=== PATIENT | female | born 1950 | race Caucasian/White ===

== ENCOUNTER 2020-12-04 07:00 | Outpatient (CLI) | payer MEDICARE, OTHER ==
--- NOTE | 2020-12-06 13:18 | XRAY Report ---
PROCEDURE: Knee 3 View RT INDICATIONS: SPRAIN OF R KNEE TECHNIQUE: 3 views of the right knee(s) were acquired. COMPARISON: None. FINDINGS: Bones: No fractures or dislocations. No suspicious bony lesions. Tricompartmental knee joint narro wing with periarticular osteophyte formation, most notably involving the lateral patellofemoral and t he medial femoral tibial joint. Soft tissues: Small joint effusion. No suspicious soft tissue calcifications. Chondrocalcinosis. 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 Chondrocalcinosis present. Reviewed by: EDEN Hairston on 12/06/2020 1:17 PM PDT Approved by: Amando Del Rosario on 12/06/2020 1:17 PM PDT Station ID: [id number]
== END 2020-12-04 23:59 | disposition home or self-care (01) ==
LOC: DI.N 07:00
PROVIDERS: ATTEND Physician Assistant Medical
DX: S83.91XA Sprain of unspecified site of right knee, initial encounter (principal); M17.11 Unilateral primary osteoarthritis, right knee; M11.261 Other chondrocalcinosis, right knee

== ENCOUNTER 2021-03-04 09:29 | Outpatient (CLI) | payer MEDICARE, OTHER ==
[2021-03-04 10:43] LABS: CHOL/HDL RATIO 2.3 (<4.4); CHOLESTEROL 193 mg/dL; HDL CHOLESTEROL 84 mg/dL; LDL CHOLESTEROL,CALCULATED 95 mg/dL; LDL/HDL RATIO 1.1 (<4.4); TRIGLYCERIDES 70 mg/dL; VLDL CHOLESTEROL 14 mg/dL
[2021-03-04 11:16] LABS: ESTIMATED AVERAGE GLUCOSE 120 mg/dL (70-100); HEMOGLOBIN A1c% 5.8 % (4.27-6.07)
== END 2021-03-04 09:30 | disposition home or self-care (01) ==
LOC: LAB 09:29
PROVIDERS: ATTEND Internal Medicine
DX: Z01.812 Encounter for preprocedural laboratory examination (principal); E78.2 Mixed hyperlipidemia; Z13.1 Encounter for screening for diabetes mellitus; Z20.822 Contact with and (suspected) exposure to COVID-19
CPT/HCPCS: 36415; 80061; 83036; U0004; 83721

== ENCOUNTER 2021-03-04 13:21 | Outpatient (CLI) | payer MEDICARE, OTHER | END 2021-03-04 13:22 | disposition home or self-care (01) | LOC: COV 13:21 | PROVIDERS: ATTEND Physician Assistant | DX: Z01.812 Encounter for preprocedural laboratory examination (principal); Z20.822 Contact with and (suspected) exposure to COVID-19 ==

== ENCOUNTER 2021-10-10 13:00 | Outpatient (CLI) | payer MEDICARE, OTHER ==
--- NOTE | 2021-10-10 15:39 | XRAY Report ---
PROCEDURE: Foot 3 View LT INDICATIONS: HEEL PAIN, LEFT TECHNIQUE: 3 views of the foot were acquired. COMPARISON: None FINDINGS: Bones: No fractures or dislocations. No suspicious bony lesions. Soft tissues: No tibiotalar joint effusion. Achilles tendon appears normal. IMPRESSION: No visualized acute fracture or dislocation. However, occult injury cannot be excluded. Recommend maxim rt interval imaging follow-up in 7-10 days as clinically indicated for additional evaluation. Reviewed by: Coretta Lafleur MD on 10/10/2021 3:37 PM PDT Approved by: Coretta Lafleur MD on 10/10/2021 3:37 PM PDT Station ID: [id number]
== END 2021-10-10 23:59 | disposition home or self-care (01) ==
LOC: DI.N 13:00
PROVIDERS: ATTEND Family Medicine
DX: M79.672 Pain in left foot (principal)

== ENCOUNTER 2022-08-15 09:41 | Outpatient (CLI) | payer MEDICARE, OTHER ==
--- NOTE | 2022-08-15 11:55 | DEXA Report ---
PROCEDURE: Dexa Spine and/or Hip INDICATIONS: POST MENOPAUSAL TECHNIQUE: Dual energy x-ray absorptiometry (DXA) was performed on a [employer] System. Regions measur ed are the AP Spine, femoral neck, and if needed forearm. COMPARISON: None. FINDINGS: Lumbar Spine: Bone Mineral Density 1.57 g/cm/cm,T score 3.2, Left Femoral Neck: Bone Mineral Density 1.15 g/cm/cm, T score 0.8, Left Hip: Bone Mineral Density 1.17 g/cm/cm,T score 1.3, (T score greater or equal to -1.0: NORMAL) (T score from -1.1 to -2.4: OSTEOPENIA) (T score less than or equal to -2.5 to: OSTEOPOROSIS) Impression: No evidence of osteopenia or osteoporosis. Patients with diagnosis of osteoporosis or osteopenia should have regular bone mineral density assess ment. For those eligible for Medicare, routine testing is allowed once every 2 years. Testing frequ ency can be increased for patients who have rapidly progressing disease or for those who are receivin g medical therapy to restore bone mass. Reviewed by: Zana Jimenez MD on 08/15/2022 11:54 AM PDT Approved by: Zana Jimenez MD on 08/15/2022 11:54 AM PDT Station ID: [id number]
== END 2022-08-15 09:42 | disposition home or self-care (01) ==
LOC: DI 09:41
PROVIDERS: ATTEND Internal Medicine
DX: N95.8 Other specified menopausal and perimenopausal disorders (principal)

== ENCOUNTER 2023-12-03 14:30 | Outpatient (CLI) | payer MEDICARE, OTHER ==
--- NOTE | 2023-12-03 18:49 | XRAY Report ---
Wrist 3+V RT HISTORY: 73 years of age, CONTUSION OF RIGHT WRIST TECHNIQUE: Wrist 3+V RT COMPARISON: None. FINDINGS/IMPRESSION: Chondrocalcinosis of the triangular fibrocartilage, representing CPPD arthropathy. Subchondral lucenc y with mild sclerosis in the proximal lunate, which may be degenerative versus avascular necrosis. No acute fracture or dislocation. Reviewed by: Isabel Castro MD on 12/03/2023 6:48 PM PDT Approved by: Isabel Castro MD on 12/03/2023 6:48 PM PDT Station ID: [id number]
--- NOTE | 2023-12-03 18:50 | XRAY Report ---
Knee 3V LT HISTORY: 73 years of age, JOINT EFFUSION, LEFT KNEE TECHNIQUE: Knee 3V LT COMPARISON: 12/04/2020. FINDINGS/IMPRESSION: Chondrocalcinosis of the left knee, representing CPPD arthropathy. Moderate knee effusion. Calcificat ion of the proximal gastrocnemius tendon, secondary to CPPD arthropathy as well. Joint spaces are ar ssly well maintained. No acute fracture or dislocation. Reviewed by: Isabel Castro MD on 12/03/2023 6:49 PM PDT Approved by: Isabel Castro MD on 12/03/2023 6:49 PM PDT Station ID: [id number]
== END 2023-12-03 14:45 | disposition home or self-care (01) ==
LOC: DI.N 14:30
PROVIDERS: ATTEND Physician Assistant
DX: S60.211A Contusion of right wrist, initial encounter (principal); M11.262 Other chondrocalcinosis, left knee; M17.12 Unilateral primary osteoarthritis, left knee; M25.462 Effusion, left knee